=== PATIENT | female | born 1930 | race Caucasian/White ===

== ENCOUNTER → 2019-02-15 | Outpatient (CLI) | payer OTHER ==
--- NOTE | 2019-02-18 10:06 | PATH ---
[address] [address] PATHOLOGY RPT PROCEDURE Name: JAMES ALVARADO Room: [facility] JALYN Andrew#: [id number] Admission: 02/15/19 Date of : [birth year] Discharge: Report #: [id number] Path Case #: [id number] L[facility] Accession Number: [id number] . 01 Material submitted: . breast - RIGHT BREAST, 10:00, 3CM FROM NIPPLE. Modifiers: right, 10:00 . 01 Clinical history: . 0.60 x 0.67 x 0.77 cm right breast nodule . 02 Diagnosis: Right breast nodule, 10:00, 3 cm from nipple, image guided core biopsies: - INFILTRATING LOBULAR CARCINOMA, LOW-GRADE, SPANNING 9 MM, ASSOCIATED WITH LOBULAR CARCINOMA IN SITU (LCIS), LOW-GRADE AND CALCIFICATIONS. SEE COMMENT. (MARRY:pit 02/17/2019) QTP/02/17/2019 . 02 Comment: Specimen type: Image guided core biopsies Tumor site: Right breast, 10:00, 3 cm from nipple Tumor quantitation: Approximately 60% of submitted tissues Histologic type: Lobular (with tubular component) Histologic grade: Low-grade (I of III) Tubules, nuclei and mitoses: 2, 1, 1 LVSI: Not identified Microcalcifications: Identified Markers: Breast tumor profile pending Block: A1 . The tumor infiltrates predominantly in the classic lobular fashion with prominent "Kazakh filing" and invasion between individual adipocytes and there are also many tubules scattered throughout (tubulolobular). Properly controlled immunohistochemical stains performed on A2 show the following results, supporting the classification: . E-cadherin: Negative Keratin AE1/AE3: Positive . Breast tumor profile studies are pending on A1 and will be the subject of an addendum report. Naya (acting [facility] breast navigator) notified at approximately 1200 on 02/17/2019. . Reviewed with Dr. Whitley Fallon who agrees with the diagnosis. . (MARRY:hannah 02/17/2019) . 02 Electronically signed: [place] [address] PATHOLOGY RPT PROCEDURE Name: JAMES ALVARADO Room: [facility] Andrew#: [id number] Admission: 02/15/19 Date of : [birth year] Discharge: Report #: [id number] Path Case #: [id number] Roger Mandujano MD, Pathologist NPI- [id number] . 01 Gross description: . Received in formalin labeled "James Alvarado, right breast 10:00, 3 cm from nipple," are multiple needle cores of yellow-martinez fibrofatty tissue measuring 2.4 x 0.3 x 0.5 cm in aggregate dimensions. The tissue is submitted in its entirety in cassettes A1 through A3. The cold ischemic time is 3 minutes. The total formalin fixation time is 12 hours and 6 minutes. (TSD; 02/15/2019) TOB/TOB . 02 Pathologist provided ICD-10: C50.911 . 02 CPT . 595954, T78614, A61462 Specimen Comment: A courtesy copy of this report has been sent to Specimen Comment: [phone], , . Specimen Comment: Report sent to ,DR BOURGEOIS / DR NAIR Performed at: [address], [place], [place] [address] MD Stoney Kowalski MD Phone: [phone] Performed at: 02 [facility] [address], [place], [place] [address] MD Roger Mandujano MD Phone: [phone]
== END | disposition home or self-care (01) ==
LOC: M.ULTRA 08:01
DX: C50.911 Malignant neoplasm of unspecified site of right female breast (principal); Z91.018 Allergy to other foods

== ENCOUNTER → 2019-02-25 | Outpatient (CLI) | payer OTHER ==
[~2019-02-25] MED LIST: ASPIR 8181 MG PO; CENTRUM SILVER1 EAC4 PO; FISH OIL 1,001000 M2 PO; HYDROCHLOROTH12.5 M1 PO; LIPITOR10 MG PO; LISINOPRIL20 MG PO
[2019-02-25 10:23] LABS: CREATININE 0.9 mg/dL (0.6-1.3)
== END ==
LOC: M.LAB 02-24 08:30 → M.MRI 02-24 08:30 → M.LAB 09:44 → M.MRI 11:30
PROVIDERS: Family Medicine
DX: C50.911 Malignant neoplasm of unspecified site of right female breast (principal)

== ENCOUNTER → 2019-04-05 | Day surgery (SDC) | payer OTHER ==
[2019-04-05 07:27] LABS: HEMATOCRIT 36.5 % (37.0-47.0); HEMOGLOBIN 12.1 gm/dL (12.0-15.0); MCH 30.6 pg (26.0-34.0); MCHC 33.2 g/dL (28.0-37.0); MCV 92.2 fL (80.0-100.0); MPV 7.5 fl. (7.2-11.1); RBC 3.95 mil/uL (4.20-5.00); RDW-CV 14.8 % (10.5-14.5)
[2019-04-05 07:35] LABS: CALCIUM 9.4 mg/dL (8.5-10.1); CREATININE 0.9 mg/dL (0.6-1.3); POTASSIUM 3.9 mmol/L (3.5-5.1)
[2019-04-05 07:40] LABS: ALBUMIN 3.3 g/dL (3.4-5.0); TOTAL BILIRUBIN 0.7 mg/dL (<0.1-1.0); TOTAL PROTEIN 6.8 g/dL (6.4-8.2)
--- NOTE | 2019-04-05 16:14 | EKG ---
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
--- NOTE | 2019-04-08 08:43 | OP ---
[address] [address] OPERATIVE REPORT Name: JAMES ALVARADO Room: [facility]#: [id number] Admission: 04/05/19 Attend Phys: Lyndsay Betancur DO Discharge: Date of : [birth year] Report #: [id number] THIS REPORT FOR: //name// CC: Lyndsay Gallegos DICTATED BY: Haseeb Berry DO DATE OF SERVICE: 04/05/2019 PREOPERATIVE DIAGNOSIS: Right breast cancer. POSTOPERATIVE DIAGNOSIS: Right breast cancer. FINDINGS: Right breast wire localized breast mass with right breast nuclear medicine injection uptake at the nipple was approximately 3100. Uptake at the lymph node was approximately 150. SURGEON: Lyndsay Betancur DO. CO-SURGEON: Del Berry, PGY5 RN NURSERY: Casandra Calderon PGY2 OPERATIONS PERFORMED: Right breast wire localized lumpectomy and a right axillary superficial sentinel lymph node dissection. ANESTHESIA: General and local. ESTIMATED BLOOD LOSS: 10 mL. SPECIMENS REMOVED: Right breast lump and a right sentinel lymph node. COMPLICATIONS: None. DISPOSITION: PACU to home. HISTORY OF PRESENT ILLNESS: The patient is a very pleasant 88-year-old female who presented to the office recently after having a right breast mass biopsy. It appeared that the patient was diagnosed with lobular carcinoma of the right breast and it was recommended that she have a right breast lumpectomy with sentinel lymph node dissection. All risks, benefits, and complications were discussed at the time of the patient's office visit. Complete details of the procedure were reviewed at length with the patient. All questions were answered at bedside at the time of her visit. We revisited the risks, benefits, and complications today just prior to the procedure [place] [address] OPERATIVE REPORT Name: JAMES ALVARADO [id number] Admission: 04/05/19 Attend Phys: Lyndsay Betancur DO Discharge: Date of : [birth year] Report #: [id number] questions were answered immediately at bedside. The patient wished to proceed and we moved forward. DESCRIPTION OF PROCEDURE: After the appropriate consents were obtained, the patient was taken to the operating room, laid in supine position. She had SCDs placed on bilateral lower extremities and a safety strap placed across her lap. Her arms were placed out. The patient had a nuclear medicine injection to her right breast as well as the right breast wire localization performed by Interventional Radiology prior to the procedure. The patient had all lines placed by Anesthesia. She was sedated and intubated by anesthesia without difficulty. Her chest was then exposed and her right axilla was exposed. We injected the patient's four quadrants of her areola with Lymphazurin blue prior to prepping the field. The patient's chest and axilla on the right were prepped and draped in standard sterile fashion. The patient was given perioperative antibiotics at this time. A timeout was performed to correctly identify the patient and procedure. We started by using some 0.5% Marcaine at the right lateral areolar region. We made a similar incision using a #15 blade scalpel. This was carried down through subcutaneous tissue superficially and we had moved superiorly towards the trajectory of our wire. We were able to identify the superior aspect of the wire and the needle and at this point, we would normally remove the needle over the wire, but we were unable to do so. So, we decided to proceed with our dissection. We took a generous lump surrounding the tip of the wire to include the clip. We once again tried to remove the needle from the wire and we were unable to do so. We pulled rather hard and we were actually able to pull the needle out, but the wire came with the needle. We continued our dissection circumferentially around the mass. The specimen was then placed in a trans-spec container and sent to Radiology for further evaluation. We inspected the cavity to ensure there were no bleeding and any small amount of bleeding that was occurring, was adequately controlled using electrocautery. We irrigated this cavity completely using sterile saline and packed it with a wet Ray-Claudia sponge. After the completion of this, we were able to get her report from the radiologist as well as a confirmed x-ray, which showed the clip within our specimen. We then proceeded with our axillary lymph node dissection. We started by using the Neoprobe to identify the uptake at the nipple, which was approximately 3100. We then turned our attention to the right axilla at the most lateral aspect of the back muscle and the axillary fat pad. Using the Neoprobe, we were able to identify an area of approximately 70-75. This is where we made our marked and injected 0.5% Marcaine. We then started with a small incision using a #15 blade scalpel. This was carried down through subcutaneous tissue, carefully dissecting using hemostat and rechecking frequently using the Neoprobe. We followed our trajectory with the Neoprobe until we were able to identify a blue lymph node. This was rather superficial in nature. We grasped the lymph node with an Allis clamp and we were able to circumferentially remove it from the right axilla. This was checked off the field using a Neoprobe and we got readings of approximately 150, which confirmed [address] [place] [address] OPERATIVE REPORT Name: JAMES ALVARADO [id number] Admission: 04/05/19 Attend Phys: Lyndsay Betancur DO Discharge: Date of : [birth year] Report #: [id number] our assumption that this was actually our sentinel lymph node. This was passed off as specimen and we reinspected our right axilla and there was a maximum uptake of approximately 10, which again once confirmed that we had actually dissected out her sentinel lymph node. The defect was then irrigated using irrigation and we then applied Raisa to the right axilla as well as the right breast incision. This would act as further assistance with hemostasis. After we used the Raisa, we then closed the subcutaneous tissue using 3-0 Vicryl in an inverted interrupted fashion and this was done in layers. The skin was closed using a Monocryl using a 4-0 suture in a running subcuticular fashion. Both these techniques were used for both of the right breast incision as well as the axillary incision. The areas were then cleaned and dried adequately. We applied Mastisol, Steri-Strips and gauze as well as a sterile Tegaderm OpSite over each of the incisions. The patient tolerated the procedure very well. All counts were correct x 2 at the end of the procedure. Dr. Betancur was present and scrubbed for entirety of the procedure. Both specimens were sent to pathology for further evaluation. The patient was allowed to awaken and was subsequently extubated in the OR without difficulty. She will be transported to PACU and allowed to recover further and likely discharged home later today. <ELECTRONICALLY SIGNED> By: Lyndsay Betancur DO 04/08/19 0843 1148 1257Chmirtha Betancur DO /nt
--- NOTE | 2019-04-09 15:07 | PATH ---
[address] [address] PATHOLOGY RPT PROCEDURE Name: JAMES ALVARADO Room: [facility]#: [id number] Admission: 04/05/19 Date of : [birth year] Discharge: Report #: [id number] Path Case #: [id number] [facility] Accession Number: [id number] . 01 Material submitted: . PART A: breast - RIGHT BREAST LUMP, LONG LATERAL, SHORT SUPERIOR. Modifiers: right, lateral, superior PART B: lymph node - RIGHT SENTINEL LYMPH NODE. Modifiers: right . 01 Clinical history: . Lobular carcinoma right breast . 02 Diagnosis: A. RIGHT BREAST LUMP: THREE SEPARATE FOCI OF LOBULAR CARCINOMA, LOW GRADE, WITH: . - LARGEST SPANNING 15 MM ADJACENT TO PRIOR BIOPSY SITE AND WITH FOCAL INVOLVEMENT OF POSTERIOR MARGIN (TOWARDS LATERAL) WHERE PERINEURAL INVASION IS ALSO NOTED. . - SECOND FOCUS OF LOBULAR CARCINOMA, SPANNING 3 MM, WITH SURGICAL MARGIN FREE OF INVOLVEMENT BUT APPROACHING TO 0.3 MM AWAY FROM LATERAL. . - THIRD FOCUS OF LOBULAR CARCINOMA, SPANNING 2 MM, WITH ALL SURGICAL MARGINS FREE OF INVOLVEMENT AND CLOSEST (LATERAL NEAR SUPERIOR) LOCATED 8 MM AWAY. SEE COMMENT. . B. Right sentinel lymph node: - One benign lymph node. See comment. LBQ/04/09/2019 . 02 Comment: SURGICAL PATHOLOGY CANCER CASE SUMMARY . INVASIVE CARCINOMA OF THE BREAST Procedure ___ Other: Lumpectomy Specimen Laterality ___ Right + Tumor Site + ___ Not specified Tumor Size ___ Greatest dimension of largest invasive focus: 15 mm Histologic Type ___ Invasive lobular carcinoma Histologic Grade (Centennial Histologic Score) Glandular (Acinar)/Tubular Differentiation ___ Score 2 (10% to 75% of tumor area forming glandular/[place] [address] PATHOLOGY RPT PROCEDURE Name: JAMES ALVARADO Room: [facility] Kamran#: [id number] Admission: 04/05/19 Date of : [birth year] Discharge: Report #: [id number] Path Case #: [id number] structures) Nuclear Pleomorphism ___ Score 1 Mitotic Rate ___ Score 1 Overall Grade ___ Grade 1 (scores of 3, 4, or 5) + Tumor Focality + ___ Multiple foci + ___ Number of foci: 3 + Sizes of individual foci: 15 mm, 3 mm and 2 mm Ductal Carcinoma In Situ (DCIS) ___ Not identified + Lobular Carcinoma In Situ (LCIS) + ___ Present Margins Invasive Carcinoma Margins ___ Positive for invasive carcinoma margin ___ Posterior towards lateral DCIS Margins ___ No DCIS in specimen Regional Lymph Nodes ___ Uninvolved by tumor cells Number of Lymph Nodes Examined: 1 Number of Lynx Nodes Examined: 1 Treatment Effect + ___ No known presurgical therapy . PATHOLOGIC STAGE CLASSIFICATION (pTNM, AJCC 8TH EDITION) TNM Descriptors ___ m (multiple foci of invasive carcinoma) Primary Tumor (pT) ___ pT1c: Tumor >10 mm but less than or equal to 20 mm in greatest dimension Regional Lymph Nodes (pN) Modifier ___ (sn): Lynx nodes examined Category (pN) ___ pN0: No regional lymph node mets + Additional Pathologic Findings + Specify: Atypical ductal hyperplasia, multiple papillomas, capillary hemangioma + Ancillary Studies + Estrogen Receptor (ER) + ___ Positive 98% + Progesterone Receptor (PgR) + ___ Positive 70% + HER2 (by immunohistochemistry) + ___ Equivocal (Score 2+) [place] [address] PATHOLOGY RPT PROCEDURE Name: JAMES ALVARADO Room: [facility].Christianne.#: [id number] Admission: 04/05/19 Date of : [birth year] Discharge: Report #: [id number] Path Case #: [id number] + HER2 (by in situ hybridization): + ___ Negative (not amplified by FISH) + Ki67 + ___ 10% (performed on [id number] A1) + Microcalcifications + ___ Present in non-neoplastic tissue Clinical History + ___ Previous right breast nodule 10:00 3 cm from nipple image guided core biopsies showing infiltrating lobular carcinoma, low grade, spanning 9 mm, associated with lobular carcinoma in situ, low grade and calcifications. . In addition to foci of residual tumor near the prior biopsy site where the largest span is noted, a second 3 mm focus is seen in A24 where it is located 0.3 mm away from the nearest margin as well as a 2 mm focus in A2 where it is 8 mm away from the nearest margin. Perineural invasion is also seen in immediate association with the tumor where it focally involves the posterior margin towards lateral (A18). Properly controlled keratin SOTO stains performed on A18 and A24 highlight the neoplastic cells in A24 although the neoplastic cells do not survive for interpretation in A18. Keratin AE1/AE3 performed on B1 shows no evidence of metastatic tumor cells. (MARRY/db; 04/08/2019) . 02 Electronically signed: . Roger Mandujano MD, Pathologist NPI- [id number] . 01 Gross description: . A. The specimen is received in formalin, labeled "James Alvarado, right breast lump, long lateral, short superior", is a 31 g, oriented, fibroadipose tissue with sutures: Short = superior and long = lateral. The specimen measures superior to inferior = 6.5 cm, anterior to posterior = 4.3 cm and medial to lateral = 1.7 cm. The specimen is inked as follows: Superior = red, inferior = green, medial = orange, lateral = yellow, superficial = blue and deep = black. The specimen is serially sectioned from superior to inferior into 16 slices. (Slice #1 = superior and slice #16 = inferior margins) to reveal an indurated luis-white area with blue dye approximately measuring 1.5 x 1.2 x 0.9 cm (slice #6 to slice #9) and a possible previous biopsy site in slice #7 to slice # 8. The lesion is 0.3 cm to the closest medial, 0.5 cm to the closest lateral, and greater than 1.5 cm from anterior, posterior, superior and inferior margins. The remaining parenchyma is yellow and fatty, with martinez-white fibrous strands interspersed in the approximate ratio of 95:5. Entirely submitted as follows: A1. Slice #1, superior margin, perpendicular sectioned. A2-A3. Slice #2 and slice # 3, respectively. A4-A5. Slice #4, bisected. A6-A7. Slice #5, bisected, possible uninvolved [place] [address] PATHOLOGY RPT PROCEDURE Name: JAMES ALVARADO Jewels Room: [facility]#: [id number] Admission: 04/05/19 Date of : [birth year] Discharge: Report #: [id number] Path Case #: [id number] A8-A9. Slice #6, bisected, lesion on the superior aspect. A10-A11. Slice #7, bisected. (A10= possible medial margin closest to lesion and A11 = biopsy site) A12-A13. Slice #8, bisected. (A12= possible lateral margin closest to lesion and A12= biopsy site) A14-A15. Slice #9, bisected, lesion on the inferior aspect. A16-A18. Slice #10, trisected, possible uninvolved slice adjacent to lesion. A19-A20. Slice #11, bisected. A21-A22. Slice #12, bisected. A23-A24. Slice #13, bisected. A25-A26. Slice #14, bisected. A27-A28. Slice #15, bisected. A29. Slice #16, inferior margin, perpendicular sectioned. . Specimen excised at: 1043 on 04/05/19, placed in formalin at: 1058 on 04/05/19, formalin exposure: Approximately 36 hours and 42 minutes. . B. The specimen is received in formalin, labeled "James Alvarado, right sentinel lymph node", is a mcclain rubbery lymph node surrounded by yellow lobulated adipose tissue. The lymph node measures 1.2 x 0.7 x 0.4 cm, serially sectioned and is entirely submitted in B1. ([facility]; 04/06/2019) SHS/SHS . 02 Pathologist provided ICD-10: C50.911 . 02 CPT . 264080, 306785, I78929, F07314 Specimen Comment: A courtesy copy of this report has been sent to Specimen Comment: [phone], . Specimen Comment: Report sent to / DR BOURGEOIS Performed at: [address], [place] [address] MD Stoney Kowalski MD Phone: [phone] Performed at: 02 [facility] [address], [place], [place] [address] MD Roger Mandujano MD Phone: [phone]
== END | disposition home or self-care (01) ==
LOC: M.SUR 07:09 → EDSTATUS 08:00 → M.RAD 08:00
PROVIDERS: Surgery
DX: C50.911 Malignant neoplasm of unspecified site of right female breast (principal); R59.0 Localized enlarged lymph nodes; I10 Essential (primary) hypertension; E78.5 Hyperlipidemia, unspecified; Z87.442 Personal history of urinary calculi; Z79.82 Long term (current) use of aspirin; Z88.8 Allergy status to other drugs, medicaments and biological substances; Z90.710 Acquired absence of both cervix and uterus; Z79.899 Other long term (current) drug therapy; Z98.890 Other specified postprocedural states; Z88.6 Allergy status to analgesic agent

== ENCOUNTER → 2019-04-26 | Day surgery (SDC) | payer OTHER ==
--- NOTE | 2019-04-27 09:06 | OP ---
[address] [address] OPERATIVE REPORT Name: JAMES ALVARADO Room: [facility]#: [id number] Admission: 04/26/19 Attend Phys: Lyndsay Betancur DO Discharge: Date of : [birth year] Report #: [id number] THIS REPORT FOR: //name// CC: Lyndsay Gallegos DATE OF SERVICE: 04/26/2019 PREOPERATIVE DIAGNOSIS: Right breast cancer, status post recent lumpectomy and right sentinel lymph node dissection with a positive posterolateral margin and a right axillary seroma. POSTOPERATIVE DIAGNOSIS: Right breast cancer, status post recent lumpectomy and right sentinel lymph node dissection with a positive posterolateral margin and a right axillary seroma. FINDINGS: A right axillary seroma with approximately 20 mL of clear fluid and findings of a previous right breast lumpectomy. SURGEON: Lyndsay Betancur DO CO-SURGEON: Ventura Alcantar, PGY3 AGRICULTURAL ECONOMICS PROFESSOR: BRIGIDO Doshi student. OPERATION PERFORMED: Drainage of right axillary seroma and excision of right posterolateral margin. ANESTHESIA: General LMA and local. ESTIMATED BLOOD LOSS: 3 mL. DRAINS: None. SPECIMENS: Right posterolateral margin. COMPLICATIONS: None. CONDITION: Stable. DISPOSITION: PACU to home. INDICATIONS FOR PROCEDURE: The patient is a very pleasant 88-year-old female who is well known to me after a previous right breast lumpectomy and right sentinel lymph node dissection. Unfortunately, our pathology returned with a positive posterolateral margin and at her postoperative visit, she had a small [facility] [address] [place] [address] OPERATIVE REPORT Name: JAMES ALVARADO Room: [facility].#: [id number] Admission: 04/26/19 Attend Phys: Lyndsay Betancur DO Discharge: Date of : [birth year] Report #: [id number] right axillary seroma. She was then consented for excision of the right posterolateral margin and drainage of the seroma. Risks discussed included bleeding, infection, pain, scar formation, need for further surgery, and risks of general anesthesia. The patient understood these risks and elected to proceed. DESCRIPTION OF PROCEDURE: The patient was brought to the operating room. She was laid supine on the operating room table. SCDs were placed on bilateral lower extremities. Ancef was given in the perioperative period. General LMA anesthesia was induced by Anesthesia without difficulty. Right breast and axilla were prepped and draped in a standard sterile fashion. Timeout was performed to verify the patient and procedure. A 10 mL of 0.5% Marcaine were injected at both of the incisions. A 15-blade was then used to make a small incision in her previous right axillary incision. A Isabel clamp was then used to gently dissect down to the seroma. Approximately 15-20 mL of clear fluid was then drained with excellent decompression of the seroma. Some Raisa was then introduced into this cavity while we turned our attention to the right breast. Previous periareolar incision was reopened using a 15-blade. Cautery was used for hemostasis. Cautery was then used to completely open her previous cavity. A small amount of seroma was suctioned away. The entirety of the cavity could then be visualized. Allis clamp was used to gently elevate the posterolateral margin and the margin was then completely excised utilizing cautery. Of note, the excision proceeded all the way down to the pectoralis fascia. Margin was then marked in the superior and lateral direction and was handed off for permanent pathology. Hemostasis within the wound was assured. The cavity was again sprinkled with Raisa. Wound was then closed in a layered fashion using deep and superficial stitches of 3-0 Vicryl in inverted interrupted fashion. Skin wounds were both closed using a running 4-0 Monocryl. A total of 30 mL of 0.5% Marcaine were used to anesthetize the wounds. Wounds were then cleansed and covered with Mastisol, Steri-Strips, 4 x 4's, and a Tegaderm. The patient was then allowed to awake from anesthesia, was extubated and transported to the recovery room with no further difficulties. Counts were correct x 2 at the conclusion of the case. Surgical bra was placed in the operating room. <ELECTRONICALLY SIGNED> By: Lyndsay Betancur DO 04/27/19 0906 [id number] Betancur DO /nt
--- NOTE | 2019-04-28 16:06 | PATH ---
[address] [address] PATHOLOGY RPT PROCEDURE Name: EZIO ALVARADOHEMAL Donis Room: [facility]#: [id number] Admission: 04/26/19 Date of : [birth year] Discharge: Report #: [id number] Path Case #: [id number] [facility] Accession Number: [id number] . 01 Material submitted: . breast - RIGHT BREAST TISSUE, POST LAT MARGIN, SHORT STITCH SUP, LONG STITCH LAT. Modifiers: right, POSTERIOR LATERAL MARGIN SHORT STITCH SUPERIOR, LONG STITCH LATERAL . 01 Clinical history: . Right breast lobular carcinoma Right breast re-excision . 02 Diagnosis: Right breast tissue posterior lateral margin: - RESIDUAL LOBULAR CARCINOMA, LOW GRADE, SPANNING 3 MM, ADJACENT TO PRIOR SURGICAL CHANGES (ANTERIOR SURFACE), WITH ALL SURGICAL MARGINS FREE OF INVOLVEMENT AND CLOSEST (LATERAL, NEAR POSTERIOR), LOCATED 10 MM AWAY. - Focal atypical ductal hyperplasia with calcifications adjacent to prior surgical changes. See comment. (MARRY:pit; 04/28/2019) QTP/04/28/2019 . 02 Comment: A single focus of residual lobular carcinoma is seen in A5 and focal atypical ductal hyperplasia is seen in A10. . Recent prior right breast lumpectomy showed three separate foci of lobular carcinoma, low grade, with focal involvement of posterior margin towards lateral and one benign right sentinel lymph node ([id number] A and B). Breast tumor profile studies were performed on the prior right breast nodule 10:00, 3 cm from nipple image guided core biopsies ([id number] A1) and showed ER 98%, WA 70%, Her2 2+/equivocal - negative/not amplified by FISH, Ki-67 10%. (MARRY:[facility]; 04/28/2019) . 02 Electronically signed: . Roger Mandujano MD, Pathologist NPI- [id number] . 01 Gross description: . . The specimen is received in formalin, labeled "James Alvarado, Christianne breast tissue posterior lateral margin and short superior, long lateral" and consists of an oriented 33 g lumpectomy reexcision with a long stitch lateral and short stitch superior. It measures 7.0 cm S-I, 3.9 cm L-M, 1.6 cm A-P, and is inked as follows: superior-blue, inferior-green, medial-red, lateral-yellow, anterior-orange, [place] [address] PATHOLOGY RPT PROCEDURE Name: JAMES ALVARADO [id number] Admission: 04/26/19 Date of : [birth year] Discharge: Report #: [id number] Path Case #: [id number] anterior margin shows previous biopsy changes. It is sectioned from superior to inferior into 18 slices revealing 3 scattered foci of dense fibrous tissue/possible nodules measuring between 0.3 cm and 0.8 cm. The largest extends 0.5 cm from the black inked new posterior margin. [employer] sections are submitted from superior to inferior as follows: . A1: Superior, perpendicular A2-A3: Slice 3, bisected (focus in A3) A4-A5: Slice 5 bisected (focus in A5) A6-A7: Slice 8 bisected (focus in A6) A8-A9: Slice 11, bisected A10-A11: Slice 15, bisected A12: Inferior, perpendicular . The specimen was collected on 04/26/2019 with no time in formalin. The cold ischemic time is unknown and the time out of formalin is 11:50 PM on 04/27/2019. (SDY; 04/27/2019) SYU/SYU . 02 Pathologist provided ICD-10: C50.911, N62 . 02 CPT . 559350 Specimen Comment: A courtesy copy of this report has been sent to Specimen Comment: [phone], . Specimen Comment: Report sent to / DR BOURGEOIS Performed at: [address], [place] [id number] MD Stoney Kowalski MD Phone: [phone] Performed at: 02 [facility] [address] , [place], [place] [id number] MD Roger Mandujano MD Phone: [phone]
== END | disposition home or self-care (01) ==
LOC: M.SUR 05:59
DX: C50.911 Malignant neoplasm of unspecified site of right female breast (principal); N60.91 Unspecified benign mammary dysplasia of right breast; R92.1 Mammographic calcification found on diagnostic imaging of breast; M96.843 Postprocedural seroma of a musculoskeletal structure following other procedure; Y83.8 Other surgical procedures as the cause of abnormal reaction of the patient, or of later complication, without mention of misadventure at the time of the procedure; Z88.8 Allergy status to other drugs, medicaments and biological substances; Z79.82 Long term (current) use of aspirin; Z79.899 Other long term (current) drug therapy

== ENCOUNTER → 2019-10-01 | Day surgery (SDC) | payer OTHER ==
[~2019-10-01] MED LIST changes: +ARIMIDEX PO
--- NOTE | ~2019-10-01 | OP ---
[address] [address] OPERATIVE REPORT Name: JAMES ALVARADO Room: [facility]#: [id number] Admission: 10/01/19 Attend Phys: Lyndsay Betancur DO Discharge: Date of : [birth year] Report #: [id number] THIS REPORT FOR: //name// CC: Lyndsay Gallegos DO DICTATED BY: Haseeb Berry DO DATE OF SERVICE: 10/01/2019 PREOPERATIVE DIAGNOSIS: Right breast seroma. POSTOPERATIVE DIAGNOSIS: Right breast seroma. SURGEON: Lyndsay Betancur DO POT FIREMAN: Del Berry, PGY5 OPERATION PERFORMED: Drainage of right breast seroma with drain placement. ANESTHESIA: General and local. ESTIMATED BLOOD LOSS: Minimal. SPECIMENS REMOVED: None. COMPLICATIONS: None. DISPOSITION: PACU and then discharged home. DESCRIPTION OF PROCEDURE: After appropriate consents were obtained, this patient was taken to the operating room, laid in supine position. She had SCDs placed on bilateral lower extremities and safety strap placed across her lap. The patient had her arms placed out her sides. She had all lines placed by Anesthesia. She was sedated and had an LMA placed without difficulty. The patient then had a right chest prepped and draped in a standard sterile fashion. A timeout was performed to correctly identify the patient and procedure. She was given perioperative antibiotics at this time. We started with some 0.5% Marcaine at the site of the right upper breast. We injected in the periareolar region. The patient had a known seroma to this right upper outer quadrant of her breast. We made our incision using a 15 blade scalpel on the lateral side of the areola. We carried this down through subcutaneous tissue until we encountered the seroma pocket. Once the pocket was entered, there was a gross amount of serous fluid present. There did not appear to be any type of infectious material present. This was suctioned freely [place] [address] OPERATIVE REPORT Name: JAMES ALVARADO Jewels [id number] Admission: 10/01/19 Attend Phys: Lyndsay Betancur DO Discharge: Date of : [birth year] Report #: [id number] visualize and palpate a smooth seroma pocket within the right upper outer breast. We elected to clean up this pocket and using a rongeur in order to rough up some of the tissue and hopefully promote healing. We removed as much of the fibrinous material as we could and irrigated copiously and suctioned free any type of fibrinous tissue that we could appreciate. Once we were completed with this portion of the procedure, we then used some Raisa in the pocket to help with hopeful hemostasis as well as healing. There was no bleeding during this case. We did place a 10-Tamazight drain within the pocket to help suction away any fluid that may accumulate. This was placed and exited in the right lateral breast. It was sutured in place using a 3-0 nylon stitch. The patient's subcutaneous tissue was then reapproximated using inverted interrupted stitches with a 3-0 Vicryl stitch. The skin was closed using multiple interrupted 4-0 Monocryl stitches. The skin was covered and Dermabond was placed. We covered the drain site with a piece of gauze as well as a Tegaderm. The patient tolerated the procedure well. There was good collapse of the cavity at the completion of the procedure. All counts were correct x 2 at the end of this procedure. Dr. Betancur was present and scrubbed for the entire procedure. The patient did receive a bra as well as some fluffs in order to add external compression on the area and hopefully collapse down the seroma pocket. The patient tolerated the procedure well. She is allowed to awaken and subsequently had her LMA removed without difficulty. She was transported to PACU, likely be discharged home later today. By: 1032 [id number] Betancur DO /jarett
[2019-10-01 08:18] LABS: HEMATOCRIT 28.8 % (37.0-47.0); MCH 31.3 pg (26.0-34.0); MCHC 34.6 g/dL (28.0-37.0); MCV 90.5 fL (80.0-100.0); MPV 7.2 fl. (7.2-11.1); RBC 3.18 mil/uL (4.20-5.00); RDW-CV 13.5 % (10.5-14.5); WBC 7.4 thou/uL (4.0-11.0)
[2019-10-01 08:22] LABS: CALCIUM 9.3 mg/dL (8.5-10.1); CREATININE 0.9 mg/dL (0.6-1.3); POTASSIUM 3.8 mmol/L (3.5-5.1)
[2019-10-01 08:27] LABS: ALBUMIN 2.6 g/dL (3.4-5.0); TOTAL BILIRUBIN 0.6 mg/dL (<0.1-1.0); TOTAL PROTEIN 6.3 g/dL (6.4-8.2)
--- NOTE | 2019-10-01 13:04 | EKG ---
[place] [address] ELECTROCARDIOGRAM REPORT Name: JAMES ALVARADO Room: [facility]#: [id number] Admission: 10/01/19 Attend Phys: Lyndsay Betancur DO Discharge: Date of : [birth year] Report #: [id number] THIS REPORT FOR: //name// [facility] Test Date: 2019-10-01 Test Time: 07:33:09 Pat Name: JAMES ALVARADO Department: Room: Gender: F [employer]: RJ : 1930 Requested By: Lyndsay Betancur Order Number: [id number] Fidel MD: Martin Graham Measurements Intervals [place] Rate: 60 P: 33 NC: 164 QRS: 3 QRSD: 130 T: 38 QT: 441 QTc: 441 Interpretive Statements Sinus rhythm incomplete Left bundle branch block Compared to ECG 04/05/2019 07:24:44 Left bundle-branch block now present Electronically Signed On 10-01-2019 13:03:42 IGNITION MECHANIC by Martin Graham [email or web address] <ELECTRONICALLY SIGNED> By: Martin Graham MD, [facility] 10/01/19 1303 D: 01/732 2 Martin Graham MD, FACC /EPI
== END | disposition home or self-care (01) ==
LOC: M.SUR 06:14
PROVIDERS: Surgery
DX: N64.89 Other specified disorders of breast (principal); Z98.890 Other specified postprocedural states; Z88.8 Allergy status to other drugs, medicaments and biological substances; Z79.82 Long term (current) use of aspirin; Z79.899 Other long term (current) drug therapy